=== PATIENT | female | born 1995 ===

== ENCOUNTER 2017-11-21 00:18 | Emergency (ER) | payer MEDICAID ==
[2017-11-21 00:26] VITALS: O2SAT 100
[2017-11-21] MEDS ORDERED: Sodium Chloride 0.9% 500 ML IV ONE ×2 (01:30→02:02)
[2017-11-21 02:04] LABS: BASO % 0.6 % (0.0-2.0); EOS # 0.2 K/uL (0.0-0.7); EOS % 2.2 % (0.0-4.0); HEMOGLOBIN 12.5 g/dL (11.0-16.0); LYMPH # 2.2 K/uL (1.0-4.3); LYMPH % 26.7 % (20.0-40.0); MEAN CELL VOLUME 78.3 fL (81.0-99.0); MEAN CORPUSCULAR HEMOGLOBIN 25.9 pg (27.0-31.0); MEAN PLATELET VOLUME 8.3 fL (7.2-11.7); MONO # 0.8 K/uL (0.0-0.8); MONO % 9.3 % (0.0-10.0); NEUT # 5.1 K/uL (1.8-7.0); NEUT % 61.2 % (50.0-75.0); NRBC % 0.1 % (0.0-2.0); RBC 4.84 Mil/uL (3.80-5.20); RED CELL DISTRIBUTION WIDTH 13.9 % (11.5-14.5); WHITE BLOOD COUNT 8.3 K/uL (4.8-10.8)
[2017-11-21 02:29] LABS: ALB/GLOB RATIO 1.3 (1.0-2.1); ALBUMIN 4.4 g/dL (3.5-5.0); ALT/SGPT 16 U/L (9-52); AST/SGOT 23 U/L (14-36); BLOOD UREA NITROGEN 8 mg/dL (7-17); GFR AFRICAN-AMERICAN > 60; GFR NON-AFRICAN AMERICAN > 60
--- NOTE | 2017-11-21 03:32 | C.PDOC ---
History Of Present Illness 22 y/o female presents to ER with c/o of generalized malaise, nausea, chills x 1 day. Pt denies URI sx, chest pain, SOB, headache, dizziness, vomiting or diarrhea. No fever, recent travel or sick contact Time Seen by Provider: 11/21/17 01:08 Chief Complaint (Nursing): Dizziness/Lightheaded History Per: Patient History/Exam Limitations: no limitations Current Symptoms Are (Timing): Still Present Seizure Or Post-ictal Symptoms: None Past Medical History Vital Signs: Last Vital Signs Temp 98.2 F 11/21/17 00:20 Pulse 88 11/21/17 00:20 Resp 16 11/21/17 00:20 BP 117/73 11/21/17 00:20 Pulse Ox 100 11/21/17 00:20 - Medical History PMH: No Chronic Diseases Family History: States: Unknown Family Hx - Social History Hx Alcohol Use: Yes Hx Substance Use: Yes Review Of Systems Constitutional: Positive for: Fever, Malaise ENT: Negative for: Ear Pain Cardiovascular: Negative for: Chest Pain Respiratory: Negative for: Cough, Shortness of Breath Gastrointestinal: Positive for: Nausea. Negative for: Vomiting, Abdominal Pain , Diarrhea Genitourinary: Negative for: Dysuria, Frequency Neurological: Negative for: Weakness, Numbness Physical Exam - Physical Exam Appears: Well, Non-toxic, No Acute Distress Skin: Normal Color Head: Atraumatic Eye(s): bilateral: Normal Inspection, PERRL Nose: Normal Oral Mucosa: Moist Neck: Normal ROM, Step Off Deformity Cardiovascular: Rhythm Regular Respiratory: Normal Breath Sounds, No Rhonchi, No Wheezing Neurological/Psych: Oriented x3 Gait: Steady ED Course And Treatment - Laboratory Results Result Diagrams: 11/21/17 02:01 11/21/17 02:01 O2 Sat by Pulse Oximetry: 100 Pulse Ox Interpretation: Normal Progress Note: Pt reports improved sx after meds and IV hydration. Labs reviewed and wnl, pt advised to do good PO hydration, follow up with PMD and return precautions were discussed and understood by pt Reevaluation Time: 03:47 Reassessment Condition: Improved Disposition Counseled Patient/Family Regarding: Diagnosis, Need For Followup, Rx Given - Disposition Referrals: [facility] [Outside] Disposition: HOME/ ROUTINE Disposition Time: 03:29 Condition: STABLE Additional Instructions: Please follow up with PMD Increase PO fluids Return to ER if worse Forms: General Discharge Instructions, [facility] ([place]) - Clinical Impression Clinical Impression: Viral illness
[2017-11-21 03:43] VITALS: BP 107/70; PULSE 98; RESP 18; TEMP 98.1
== END 2017-11-21 04:03 | disposition home or self-care (01) ==
LOC: C.ER 00:18
DX: R53.81 Other malaise (principal); B34.9 Viral infection, unspecified
CPT/HCPCS: 80053; 84443; 85025; 96374; 99285; J2405; J7040